=== PATIENT | female | born 1990 | race Caucasian/White ===

== ENCOUNTER → 2020-10-23 09:38 | Outpatient (CLI) | payer BC, SELFPAY ==
--- NOTE | ~2020-10-23 | US_ITS ---
EXAMINATION: US OB >= 14 weeks Fetus EXAM DATE: 10/23/2020 10:24 INDICATION: Anatomy, EFW . 2nd trimester. TECHNIQUE: Pelvic obstetrical transabdominal sonogram was performed by a technologist. There are mu ltiple grayscale and Doppler images available for interpretation. There are no earlier studies of th is gestation for comparison. FINDINGS: There is a single fetus identified in vertex presentation with a heart rate of 147 beats pe r minute. The placenta is located in the anterior position. Placental margin to internal cervical os distance is 6.5 cm. There is no sonographic evidence of retroplacental hemorrhage identified. There is subjectively expected amount of amniotic fluid. BIOMETRIC DATA: Biparietal diameter (BPD): 4.5cm ----------------> 19 weeks 6 days. Head circumference (HC): 20.0 cm ----------------> 19 weeks 4 days. Abdominal circumference (AC): 15.2 cm ----------> 20 weeks 3 days. Femur length (FL): 3.0 cm --------------------------> 19 weeks 1 day. These measurements are concordant. HC/AC ratio is 1.11 (The 5th -- 95th percentile range is 1.08-1.26. Estimated weight is 314 g +/- 47 g. This is the 68 percentile when the currently reported clin [facility] gestation age 19 weeks 3 days, clinical estimated date of delivery ([facility]) 03/16/2021 is used. estimated gestational age based on measurements from this exam is 19 weeks 5 days, with an sarah mated date of delivery ([facility]) 03/14. ANATOMIC SURVEY: The following anatomy is identified and is sonographically normal in appearance: Cerebral ventricles Cerebellum Cisterna magna Nuchal fold CTL-spine Four-chamber heart Diaphragm Stomach Kidneys Bladder Three-vessel cord Cord insertion IMPRESSION: 1. Single fetus in vertex presentation with heart rate 147 beats per minute. 2. Estimated weight of 314 grams, 68th percentile using the currently reported clinical gestat ion age of 19 weeks 3 days, [facility]) 03/16/2021. 3. Normal anatomic survey. Reviewed, dictated and finalized at location B. GER GENERAL IMPRESSION: 1. Single fetus in vertex presentation with heart rate 147 beats per minute. 2. Estimated weight of 314 grams, 68th percentile using the currently re ported clinical gestation age of 19 weeks 3 days, [facility]) 03/16/2021. 3. Normal anatomic survey.
== END ==
PROVIDERS: Visit Provider Obstetrics & Gynecology
DX: Z36.9 Encounter for antenatal screening, unspecified (principal); Z3A.19 19 weeks gestation of pregnancy
CPT/HCPCS: 76805

== ENCOUNTER 2021-03-01 19:00 | Outpatient (CLI) | payer BC, SELFPAY ==
[2021-03-01] VITALS (10 sets, daily range): BP systolic 131–149; BP diastolic 92–101; PULSE 68–79; RESP 18; TEMP 36.9; BMI 29.3
--- NOTE | 2021-03-01 19:00 | OBADM ---
This patient, Obdulia Walsh, admitted to the OB room Labor/Delivery/Recovery 106 for observation. Patient/family oriented to hospital policies and general routines including ID bracelet, bed and alarms, visiting hours, pain management, procedures, bathroom and other care routines, personal items, smoking policy, room service/diet, and visiting hours. Patient/Family are encouraged to report perceived risks to care and to ask questions if they do not understand what they are told or what they should do.
[2021-03-01 20:05] LABS: Basophils Percent Auto 0.4 % (0.2-1.2); Eosinophils Absolute Auto 0.1 K/mm3 (0-0.3); Eosinophils Percent Auto 0.6 % (0-4.4); Hematocrit 36.9 % (37.0-47.0); Hemoglobin 12.3 g/dL (12.0-15.0); Immature Granulocyte Absolute 0.09 K/mm3 (0.00-0.031); Immature Granulocyte Percent A 0.8 % (0-0.5); Lymphocytes Absolute Auto 1.87 K/mm3 (0.9-3.2); Lymphocytes Percent Auto 16.5 % (18.3-44.2); Mean Corpuscular HGB Conc 33.3 g/dl (32-36); Mean Corpuscular Hemoglobin 30.6 pg (26-34); Mean Corpuscular Volume 91.8 fl (80-100); Mean Platelet Volume 11.5 fl (7.4-10.4); Monocytes Absolute Auto 0.7 K/mm3 (0.1-0.6); Monocytes Percent Auto 6.2 % (2.6-8.5); Neutrophils Absolute Auto 8.5 K/mm3 (1.3-6.7); Neutrophils Percent Auto 75.5 % (45.5-73.1); Platelet Count Result 153 k/mm3 (150-375); Red Blood Count 4.02 M/mm3 (4.2-5.4); Red Cell Distribution Width 13.1 % (11.5-14.5); White Blood Count 11.3 K/mm3 (4.5-10.0)
[2021-03-01 20:10] LABS: Add Urine Microscopic? YES; Appearance Urine Cloudy (Clear); Bacteria Urine Trace /hpf; Bilirubin Urine Negative (Negative); Blood Urine Negative (Negative); Color Urine Yellow (Yellow); Glucose Urine UA Negative (Negative); Ketones Urine Negative (Negative); Leukocyte Esterase Ur 3+ LEU/UL (NEGATIVE); Mucus Urine Rare /lpf; Nitrate Urine Negative (Negative); Protein Urine 1+ mg/dL (Negative); RBC Urine 0-2 /hpf (0-2); Specific Grav Ur 1.017 (1.001-1.035); Squamous Epithelial Cell Urine Many /hpf (Few); Urobilinogen Urine Negative mg/dL (<2.0)
[2021-03-01 20:15] LABS: Alanine Aminotransferase 12 U/L (4-35); Albumin Level 3.6 g/dL (3.5-5.1); Alkaline Phosphatase 160 U/L (38-126); Anion Gap 7 mmol/L (8-16); Aspartate Amino Transferase 24 U/L (14-36); Bilirubin,Total 0.3 mg/dL (0.2-1.3); Blood Urea Nitrogen 6 mg/dL (7-17); Calcium 8.9 mg/dL (8.4-10.2); Carbon Dioxide 21 mmol/L (22-30); Chloride 106 mmol/L (98-107); Estimated CRCL calculation 128 ml/min; Estimated Glomerular Filt Rate > 60; Glucose 90 mg/dL (65-105); Potassium 3.8 mmol/L (3.4-5.0); Sodium 134 mmol/L (137-145); Uric Acid 4.3 mg/dL (2.5-7.5)
[2021-03-01 20:24] LABS: Creatinine Urine 124.5 mg/dL; Total Protein Urine Random 12 mg/dL
[2021-03-01] MEDS: ACETAMINOPHEN 500 MG TABLET 1000 MG PO (20:46)
== END 2021-03-01 21:20 | disposition home or self-care (01) ==
LOC: ANHLDR 21:13 → ANHOBOP 03-04 12:48 → ANHLDR 03-04 12:48
PROVIDERS: Student in an Organized Health Care Education/Training Program; PCP Internal Medicine; Visit Provider Obstetrics & Gynecology
DX: O13.9 Gestational [pregnancy-induced] hypertension without significant proteinuria, unspecified trimester (principal); Z3A.00 Weeks of gestation of pregnancy not specified
CPT/HCPCS: 36415; 80053; 81001; 82570; 84112; 84156; 84550; 85025; 87086; 87088; 99199; A9270

== ENCOUNTER 2021-03-05 04:48 | Inpatient (IN) | payer BC, SELFPAY ==
[2021-03-05] VITALS (115 sets, daily range): BP systolic 99–145; BP diastolic 41–99; PULSE 52–171; RESP 16; TEMP 36.1–36.9; O2SAT 97–100; BMI 29.8
--- NOTE | 2021-03-05 05:47 | WPDANESEPP ---
Anes - Eval Pre Procedure Procedure: labor epidural Date/Time: 03/05/21 05:47 Surgeon: arabella Pre Op Diagnosis: SROM Patient Data Age: 30 Gender: F Height: Weight: Last Vital Signs Pulse 69 03/05/21 05:46 BP 139/93 H 03/05/21 05:46 Allergies Allergy/AdvReac Type Severity Reaction Status Date / Time Cephalosporins Allergy Unknown Verified 02/17/21 13:37 Penicillins Allergy Hives Verified 02/17/21 13:35 PRESEVERATIVES IN SHOTS AdvReac Swelling Uncoded 02/17/21 13:37 Home Medications Medication Instructions Recorded Confirmed Type prenat.vits,susan,hnv-vmhz-barzd 1 tablet PO HS 02/17/21 03/01/21 History Patient hx anesthesia problems: none Family hx anesthesia problems: none PMFSH Family History Family History (Updated 02/17/21 @ 13:39 by Evan Strong RN) Father Hypertension Mother Hypertension Sibling Hypertension Social History Social History Substance use: never Spiritual care concerns: No Exam Day of Procedure 03/05/21 05:47
--- NOTE | 2021-03-05 06:16 | LDADM ---
This patient, Obdulia Walsh, was admitted to Labor/Delivery/Recovery 106 on 03/05/21 at 04:48. Plans for labor, pain management and were discussed with patient. Patient/family oriented to hospital policies and general routines including ID bracelet, bed and alarms, visiting hours, pain management, procedures, bathroom and other care routines, personal items, smoking policy, room service/diet and guest tray routines, security routines, and visiting hours. Patient/Family are encouraged to report perceived risks to care and to ask questions if they do not understand what they are told or what they should do. See OBIX for further documentation.
[2021-03-05] MEDS: LACTATED RINGERS 1,000 ML 125 ML IV CONT ×3 (06:23→11:09)
[2021-03-05] MEDS: CLINDAMYCIN 900 MG/D5W 50 ML 900 MG/50 ML PIGGYBACK 50 MG IVPB ×2 (06:24→13:35)
[2021-03-05 06:30] LABS: Basophils Percent Auto 0.4 % (0.2-1.2); Eosinophils Absolute Auto 0.1 K/mm3 (0-0.3); Eosinophils Percent Auto 0.8 % (0-4.4); Hemoglobin 12.3 g/dL (12.0-15.0); Immature Granulocyte Absolute 0.08 K/mm3 (0.00-0.031); Immature Granulocyte Percent A 0.7 % (0-0.5); Lymphocytes Absolute Auto 2.07 K/mm3 (0.9-3.2); Lymphocytes Percent Auto 18.6 % (18.3-44.2); Mean Corpuscular HGB Conc 33.2 g/dl (32-36); Mean Corpuscular Hemoglobin 30.5 pg (26-34); Mean Corpuscular Volume 91.8 fl (80-100); Mean Platelet Volume 11.9 fl (7.4-10.4); Monocytes Absolute Auto 0.8 K/mm3 (0.1-0.6); Monocytes Percent Auto 7.2 % (2.6-8.5); Neutrophils Absolute Auto 8.1 K/mm3 (1.3-6.7); Neutrophils Percent Auto 72.3 % (45.5-73.1); Platelet Count Result 148 k/mm3 (150-375); Red Blood Count 4.03 M/mm3 (4.2-5.4); Red Cell Distribution Width 13.2 % (11.5-14.5); White Blood Count 11.1 K/mm3 (4.5-10.0)
--- NOTE | 2021-03-05 08:09 | WPDOBADMIT ---
Obstetrics - Admit Note Admission Note: record reviewed. Additions to the history and/or subsequent changes in the physical findings follow. 30 y/o at 38 3/7 weeks here after gush of clear fluid around 0400, now feeling some contractions. GBS pos, allergic to PCN. Culture sensitive to clindamycin. History of gestational HTN, has used aspirin through 34 weeks. AVSS NST reactive TOCO: contractions irregularly ABD soft, nontender, gravid, vertex EXT nontender Cervix 2-3/50/-2. Gross ROM, clear fluid. A: IUP at term with SROM. GBS pos. P: Augment labor as needed. Clindamycin.
[2021-03-05] MEDS: OXYTOCIN 30 UNITS/NS 500 ML 30 UNITS/500 ML BAG IV CONT ×2 (08:25→14:50)
[2021-03-05 11:10] LABS: Rapid Plasma Reagin Non-Reactive (NonReactive)
--- NOTE | 2021-03-05 14:30 | PM.OBPRVD ---
OB - Delivery Note Procedure Delivery date: 03/05/21 Procedure: Intrapartal events: None Induction method: none Delivery augmentation: pitocin Delivery monitor: external FHT and external uterine Route of delivery: Laceration Description: Periurethral and Perineal - 1st Degree Delivery repair: vicryl (3-0) Specimen: Yes (cord blpod) Quantitative Blood Loss (ml): 65 Anesthesia type: Epidural Disposition: PACU Complications: None Narrative: 30 y/o at 38 3/7 weeks gestation who presented to the hospital after a gush of clear fluid. SROM was diagnosed. She received clindamycin for GBS colonization (sensitive to clindamycin). Labor was subsequently augmented using IV oxytocin. She received an epidural for pain control. Her labor progressed and her cervix dilated completely. She pushed with good effort and delivered the infant's head to the perineum. A loose nuchal cord was splinted and the body delivered. The nose and mouth were bulb suctioned. The cord was reduced. After a delay, the cord was clamped and cut. The was handed off the field. Cord blood was collected. The placenta delivered spontaneously and was grossly normal in appearance. The usual 3 vessel cord was noted. A first degree midline perineal laceration was sustained, as was a right sided periurethral laceration. These were reapproximated using 3 0 Vicryl in interrupted [id number] fashion. Excellent hemostasis resulted as did excellent reapproximation of the normal anatomy. Needle and instrument counts were correct. The patient was taken to recovery room in stable condition. The infant went to the nursery in stable condition. I was present and scrubbed for the entire delivery. Baby Date of : 03/05/21 Time of : 14:16 Weeks of gestation at delivery: 38 Infant gender: Female Weight (pounds): 6 Weight (ounces): 14 presentation: vertex position: Right Occiput Anterior Placenta delivery description: Spontaneous and Normal Configuration cord vessel description: 3 Vessels, Nuchal Cord and Delayed Cord Clamping score one minute: 9 score five minutes: 9
--- NOTE | 2021-03-05 14:34 | P.DS_ITS ---
DS: Admitting Diagnosis Admitting Diagnosis Admitting Diagnosis: IUP at 38 3/7 weeks SROM GBS colonization DS: Discharge Diagnosis Discharge Diagnosis (1) (normal spontaneous vaginal delivery): Code(s): O80 - Encounter for full-term uncomplicated delivery Status: Acute (2) GBS (group B Streptococcus carrier), +RV culture, currently : Code(s): O99.820 - Streptococcus B carrier state complicating Status: Acute OB - DS: Summary OB Procedures : None OB Procedures Intrapartum: Spontaneous Vag Delivery OB Procedures: : None DS: Data Data Completed and Pending Labs on day of discharge: Labs from last 24 hours 03/05/21 03/05/21 03/05/21 06:19 06:19 06:19 WBC 11.1 H RBC 4.03 L Hgb 12.3 Hct 37.0 MCV 91.8 MCH 30.5 MCHC 33.2 RDW 13.2 Plt Count 148 L MPV 11.9 H Immature Gran % (Auto) 0.7 H Neut % (Auto) 72.3 Lymph % (Auto) 18.6 [place] % (Auto) 7.2 Eos % (Auto) 0.8 Baso % (Auto) 0.4 Lymph # (Auto) 2.07 [place] # (Auto) 0.8 H Eos # (Auto) 0.1 Baso # (Auto) 0.0 Abs Immat Gran (auto) 0.08 H Absolute Neuts (auto) 8.1 H Absolute Nucleated RBC 0.0 Nucleated RBC % 0.0 RPR Non-reactive Blood Type A Positive Antibody Screen Negative Discharge Plan Discharge Attending physician on discharge: Zach Phoenix Discharging Clinician: Zach Phoenix Patient Disposition: Home, Self-Care Activity: pelvic rest Diet: regular Discharge Instructions: Call or return if temperature above 100.4? F, increased abdominal pain, increased vaginal bleeding or any new problems. Stand Alone Forms: General Discharge Information Follow-up/Referrals: Zach Phoenix MD [Physician] - 6 Weeks Discharge Medications: New ibuprofen 600 mg tablet 600 mg PO Q6H PRN (Reason: cramps) Qty: 30 RF: 0 No Action prenat.vits,susan,zdy-rsrm-unuyu Tablet 1 tablet PO HS RF: 0 Date of admission: 03/05/21 04:48 Primary Care Provider: ,Israel Parsons Admitting Provider: Zach Phoenix Attending physician on admission: Zach Phoenix Condition: Stable
[2021-03-05] MEDS: IBUPROFEN 600 MG TABLET PO (18:52)
[2021-03-06] MEDS: IBUPROFEN 600 MG TABLET PO ×4 (00:40→21:28)
[2021-03-06] MEDS: ACETAMINOPHEN 325 MG TABLET 650 MG PO ×4 (00:40→21:28)
[2021-03-06 00:49] VITALS: BP 123/79; PULSE 73; RESP 16; TEMP 36.9; O2SAT 98
[2021-03-06 04:56] VITALS: BP 112/66; PULSE 66; RESP 16; TEMP 36.6; O2SAT 98
[2021-03-06 05:56] LABS: Hematocrit 31.7 % (37.0-47.0)
[2021-03-06 08:20] VITALS: BP 131/84; PULSE 74; RESP 16; TEMP 37; O2SAT 97
--- NOTE | 2021-03-06 09:06 | PM.OBPNVD ---
OB - PN: Subj Subjective Date/time seen: 03/06/21 09:06 Narrative: Pain OK. OB - PN: Obj Data Labs CBC & Chem 7: 03/06/21 04:39 Labs: Laboratory Results - last 24 hr 03/05/21 03/06/21 06:19 04:39 Hgb 11.0 L Hct 31.7 L RPR Non-reactive OB - PN A/P Plan Comments: A: PPD#1, doing well. P: Routine care. Exam Psych: Other: AVSS ABD soft, nontender, fundus firm EXT nontender
--- NOTE | 2021-03-06 09:28 | WPDANLDPN2 ---
Anes-Prog Note L&D Date/Time: 03/06/21 09:28 Comfortable throughout: labor and delivery Neuraxial method: epidural Epidural/Spinal procedure site: clean & non-tender Neuro status: Neuro function grossly intact. Cardiovascular status: normal Respiratory status: normal Airway patency: baseline Mental status: baseline Post-Op hydration status: normal Vital Signs: Last Vital Signs Temp 36.6 C 03/06/21 04:56 Pulse 66 03/06/21 04:56 Resp 16 03/06/21 04:56 BP 112/66 03/06/21 04:56 Pulse Ox 98 03/06/21 04:56 Pain score (VAS): 0 Post-procedural complaints: none Patient feedback: Patient satisfied with anesthetic care.
[2021-03-06 12:10] VITALS: BP 130/88; PULSE 69; RESP 16; TEMP 36.8; O2SAT 98
--- NOTE | 2021-03-06 12:30 | PC.NURSE ---
Consult with pt., mother reports this to be 2nd child to breastfeed,first pumped and bottle fed for 2 months before infant would latch. Mother reports is sleepy at breast with slight tenderness. Both nipples are reddened skin is intact. Infant is able to move tongue freely past gum ridge, both lips flange. Mother has to breast in cradle with shallow latch, reporting tenderness with feeding. Reviewed infant feeding cues, frequencies, duration of feedings, feeding elimination flow sheet, and signs of adequate intake. Demonstrated stimulation techniques to wake for feeding. Assisted with to breast. Reviewed positioning/alignment in cross cradle, holding breast in ?U? hold and guided asymmetrical latch on. able to latch correctly within a few attempts. Infant nursed eagerly with steady draws and occasional swallowing followed with long pausing. Reviewed signs of a correct latch, effective nursing and suck swallow ratio. would slip to shallow latch, mother reports tenderness. Demonstrated how to adjust latch more deeply while feeding. Suggested mother stimulate while feeding to increase stimulate, increase intake and to assist with maintaining deep latch. Mother reports she can feel change in latch and has no tenderness. Suggested mother stimulate while feeding to increase stimulate, increase intake and to assist with maintaining deep latch. Mother switched back to cradle, infant slipped to shallow latch, mother denies tenderness. Nipple care reviewed of lanolin after feedings, warm compresses as needed. Instructed mother to call out for RN assistance if she is unable to latch infant for feeding or she has discomfort with nursing. Instructed feeding should be initiated three hours from start of last feeding or if feeding cues are noted before. Mother voiced understanding of information shared
[2021-03-06 20:00] VITALS: BP 124/84; PULSE 65; RESP 16; TEMP 36.8; O2SAT 97
[2021-03-07] MEDS: IBUPROFEN 600 MG TABLET PO (03:35)
[2021-03-07] MEDS: ACETAMINOPHEN 325 MG TABLET 650 MG PO (03:35)
--- NOTE | 2021-03-07 08:40 | PC.NURSE ---
Patient viewed the discharge video Mother & Baby Care, The First Two Weeks . Patient was given the opportunity and encouraged to ask questions. Patient verbalized understanding of information shared and has been given the mother/baby guide for home reference.
[2021-03-07] MEDS: MULTIVIT/MIN/PREN/FOL AC/IRON TABLET 1 TAB PO (08:41)
[2021-03-07] MEDS: FLUoxetine HCL 10 MG CAPSULE PO (08:41)
[2021-03-07 08:45] VITALS: BP 143/89; PULSE 78; RESP 16; TEMP 36.7; O2SAT 98
--- NOTE | 2021-03-07 08:55 | PM.OBPNVD ---
OB - PN: Subj Subjective Date/time seen: 03/07/21 08:55 Narrative: Pain OK. Would like to go home. OB - PN: Obj Data Labs CBC & Chem 7: 03/06/21 04:39 OB - PN A/P Plan Comments: A: PPD#2, doing well. P: Home to f/u 6 weeks. Exam Psych: Other: AVSS ABD soft, nontender, fundus firm EXT nontender
[2021-03-10 11:23] VITALS: BP 137/93; PULSE 70; RESP 20; TEMP 37; O2SAT 100
== END 2021-03-07 11:07 | disposition home or self-care (01) | DRG 807 ==
LOC: ANHLDR 14:35 → ANHOB2 17:37
PROVIDERS: Admitting Provider Obstetrics & Gynecology; PCP Internal Medicine; Visit Provider Obstetrics & Gynecology
DX: O99.824 Streptococcus B carrier state complicating childbirth (principal); Z37.0 Single live birth; Z3A.38 38 weeks gestation of pregnancy; O36.8330 Maternal care for abnormalities of the fetal heart rate or rhythm, third trimester, not applicable or unspecified; O70.0 First degree perineal laceration during delivery; O71.82 Other specified trauma to perineum and vulva
CPT/HCPCS: 36415; 85014; 85018; 85025; 86592; 86850; 86900; 86901; A9270; J2590; J2795; J7120

== ENCOUNTER 2023-04-07 09:00 | Outpatient (NON) | payer OTHER, SELFPAY | END 2023-04-07 09:01 | disposition home or self-care (01) | PROVIDERS: PCP Internal Medicine; Visit Provider Obstetrics & Gynecology | DX: N92.1 Excessive and frequent menstruation with irregular cycle (principal) | CPT/HCPCS: 88305 ==

== ENCOUNTER 2023-04-07 10:15 | Day surgery (SDC) | payer OTHER, SELFPAY ==
--- NOTE | 2023-04-06 10:57 | P.PNAN_ITS ---
Anes - Initial Pre Proc Eval Procedure: Operation Date: 04/07/23 14:15 Proposed Procedures p Hysteroscopy with Dilation and Curettage - Zach Phoenix MD Date/Time: 04/06/23 10:57 Surgeon: Zach Phoenix MD Pre Op Diagnosis: Irregular Vaginal Bleeding and Abnormal Ultrasound Patient Data Age: 32 Gender: F Height: 1.7 m Weight: 73.5 kg Allergies Allergy/AdvReac Type Severity Reaction Status Date / Time Cephalosporins Allergy Unknown Verified 04/07/23 10:41 Penicillins Allergy Hives Verified 04/07/23 10:41 PRESEVERATIVES IN SHOTS AdvReac Swelling Uncoded 04/07/23 10:41 Home Medications Medication Instructions Recorded Confirmed Type prenat.vits,susan,jpa-mzlj-xorcf 1 tablet PO HS 02/17/21 04/07/23 History ibuprofen 600 mg tablet 600 mg PO Q6H PRN cramps #30 tabs 03/05/21 04/07/23 Rx Patient hx anesthesia problems: none Family hx anesthesia problems: none Results Review: All pre-operative results and documents have been reviewed as part of the pre-operative evaluation. [facility] Past Medical History Medical History Anxiety Asthma Family History Family History Father Hypertension Mother Hypertension Sibling Hypertension Social History Social History Smoking status: Never smoker Alcohol intake: current Alcohol use details: 3 per month, rarely Substance use: never Substance use type: does not use Living arrangements: with family Spiritual care concerns: No Anes - Eval Final PreProcedure Day of Procedure 04/06/23 10:57 Patient weight: overweight Heart: regular rate and rhythm Lungs: clear to auscultation and normal air movement Airway: Mallampati scale class II Neurological: alert and oriented Last oral intake: >/= 8 hours ASA classification: II Emergent: no Anesthetic plan: proceed Anesthesia type and monitoring: general GIVS and standard monitoring Results Review: All pre-operative results and documents have been reviewed as part of the pre- operative evaluation. Informed Consent: The patient's anesthetic plan and its attendant risks and benefits were discussed with the patient/family/POA. Questions were solicited and answers provided to the satisfaction of the patient/family/POA.
--- NOTE | 2023-04-07 01:44 | PM.IMHP ---
H&P: HPI History of Present Illness Date/Time: 04/07/23 01:44 Chief Complaint: Heavy vaginal bleeding Narrative: 32 y/o with heavy monthly menses lasting 9 days each. Ultrasound exam shows an endometrial complex measuring 1.45 cm thick. Review of Systems Review of Systems: All systems reviewed & are unremarkable except as noted in HPI and below PMFSH Past Medical History Medical History Anxiety Asthma Family History Family History Father Hypertension Mother Hypertension Sibling Hypertension Social History Social History Smoking status: Never smoker Alcohol intake: current Alcohol use details: 3 per month, rarely Substance use: never Substance use type: does not use Living arrangements: with family Spiritual care concerns: No Meds Home Medications and Allergies Home Medications Medication Instructions Recorded Confirmed Type prenat.vits,susan,npj-ykip-dcdtg 1 tablet PO HS 02/17/21 03/29/23 History ibuprofen 600 mg tablet 600 mg PO Q6H PRN cramps #30 tabs 03/05/21 03/29/23 Rx Allergies Allergy/AdvReac Type Severity Reaction Status Date / Time Cephalosporins Allergy Unknown Verified 03/29/23 14:01 Penicillins Allergy Hives Verified 03/29/23 14:01 PRESEVERATIVES IN SHOTS AdvReac Swelling Uncoded 03/29/23 14:01 Exam Const: Orientation/consciousness: patient oriented x3 Other: Well-developed, well-nourished female in no acute distress. Neck: Thyroid: thyroid normal Lymphatic: no lymphadenopathy noted (in neck, axilla or inguinal nodes) Resp: Effort & Inspection: normal respiratory effort Auscultation: clear to auscultation bilaterally Cardio: Rate: regular rate Rhythm: regular rhythm Heart sounds: S1 normal heart sound present and S2 normal heart sound present GI: Other: ABD: Soft, nontender, nondistended. No guarding or rebound tenderness. No hepatosplenomegaly. : General: Yes no CVA tenderness Other: External genitalia: normal female hair distribution, without lesion. Urethral meatus: no lesion, non prolapsed. Bladder: no mass, nontender Vagina: well-estrogenized, without lesion or discharge. No cystocele or rectocele. Cervix: no lesion or discharge. Uterus: small, anteverted, freely mobile, nontender Adnexa: no mass or tenderness. Anus/perineum: no lesions, nontender Back/Spine/Pelvis: Back: no CVA tenderness Skin: General skin exam: normal color and no rashes or lesions noted Neuro: General: patient oriented x3 Extrem: Other: Extremities: nontender with no edema Psych: Mental Status: mental status grossly normal Affect: normal affect Assessment and Plan Assessment and plan (1) Menometrorrhagia: Code(s): N92.1 - Excessive and frequent menstruation with irregular cycle Status: Acute Assessment and Plan: A: Menometrorrhagia with thickened endometrial complex. P: We have reviewed medical as well as surgical approaches to her problem. She prefers the latter. Specifically, I have offered her a hysteroscopy with dilation and sharp curettage. She understands risks of surgery to include risks of anesthesia, risks of pain, infection, bleeding, blood products, thromboembolic phenomena and damage to adjacent structures such as bowel, bladder, ureters, blood vessels and nerves. She understands all these risks and elects to proceed with surgery. (2) Abnormal pelvic ultrasound: Code(s): R93.89 - Abnormal findings on diagnostic imaging of other specified body structures Status: Acute
[2023-04-07 10:47] VITALS: BMI 25.4
[2023-04-07] MEDS: ACETAMINOPHEN 500 MG TABLET 1000 MG PO (10:56)
[2023-04-07] MEDS: LACTATED RINGERS 1,000 ML 30 ML IV CONT (11:05)
--- NOTE | 2023-04-07 12:04 | WPDHPUPDATE1 ---
History and Physical Update Update Date/Time: 04/07/23 12:04 History and Physical has been reviewed, including an updated exam of the patient. There are NO changes in the patient's condition. Risks, benefits, and alternatives have been discussed and questions answered. Patient agrees to proceed with procedure.
[2023-04-07] MEDS: LIDOCAINE HCL 1% LOCAL INJ 20 ML VIAL 10 ML INFILTRATE (12:57)
--- NOTE | 2023-04-07 13:08 | W.PM.PROC2 ---
Procedure Note - Detailed Date of Procedure 04/07/23 Pre-op Diagnosis Menometrorrhagia Abnormal pelvic ultrasound Post-op Diagnosis Same Procedure Performed Hysteroscopy Dilation and sharp curettage Surgeon Zach Phoenix MD Anesthesia MAC and Local (Paracervical block) Findings Mild endometrial thickening. Both tubal ostia seen. Description of Procedure The patient was taken to the operating room where she was prepared and draped in the usual sterile fashion in the dorsal lithotomy position. The bladder was drained with a red rubber catheter. A sterile speculum was placed into the vagina. The anterior lip of the cervix was grasped with single-tooth tenaculum. Ten mL of 1% lidocaine was administered in a paracervical block. The cervix was then gently dilated using Hegar dilators until an 8 mm dilator could be passed. Hysteroscopy was performed using sterile saline as a distention medium. Findings are as noted above. Sharp curettage was then performed, and endometrial curettings were collected on a Telfa pad and passed off to be sent to pathology. Hemostasis was excellent. Sponge, lap, needle and instrument counts were correct. The patient was awakened and taken to the recovery room in stable condition. I was present and scrubbed through the entire procedure. Estimated Blood Loss 10 Drains No Packing No Pathology Yes (Endometrial curettings) Complications None Condition Stable Disposition PACU
[2023-04-07 13:11] VITALS: BP 123/81; PULSE 68; RESP 16; O2SAT 100
--- NOTE | 2023-04-07 13:25 | WPDANESPN ---
Anes - Prog Note Post-Op Date/Time: 04/07/23 13:25 Cardiovascular status: normal Respiratory status: normal Airway patency: baseline Mental status: baseline Post-Op hydration status: normal Vital Signs: Last Vital Signs Pulse 68 04/07/23 13:11 Resp 16 04/07/23 13:11 BP 123/81 04/07/23 13:11 Pulse Ox 100 04/07/23 13:11 O2 Del Method Room Air 04/07/23 13:11 Pain Score (VAS): 1 I/O: Intake & Output 04/06/23 04/07/23 04/07/23 23:59 07:59 15:59 Intake Total 0 Output Total 50 Balance -50 Post-procedural complaints: none Patient Feedback: Patient satisfied with anesthetic care. Other Findings: Patient vital signs back to baseline. Patient denies nausea and vomiting. Patient's pain under control. Patient OK for discharge.
[2023-04-07 13:27] VITALS: BP 115/90; PULSE 60; RESP 16; O2SAT 100
[2023-04-07 13:46] VITALS: BP 111/80; PULSE 58; RESP 16; O2SAT 100
== END 2023-04-07 13:51 | disposition home or self-care (01) ==
PROVIDERS: PCP Internal Medicine; Visit Provider Obstetrics & Gynecology
PROC: 0U5B8ZZ Destruction of Endometrium, Via Natural or Artificial Opening Endoscopic (ICD-10-PCS; CPT 58563; principal; 2023-04-07 14:15)
DX: N92.1 Excessive and frequent menstruation with irregular cycle (principal)
CPT/HCPCS: 58558

== ENCOUNTER 2023-10-29 18:13 | Emergency (ER) | payer OTHER, SELFPAY ==
[2023-10-29 18:29] VITALS: BP 121/77; PULSE 80; RESP 16; TEMP 36.6; O2SAT 99
[2023-10-29 18:31] VITALS: BP 121/77; PULSE 80; RESP 16; TEMP 36.6; O2SAT 99
--- NOTE | 2023-10-29 18:41 | ED.EYEPROB ---
HPI - Eye Problem General Chief complaint: Eye Problems Stated complaint: left eye red Time Seen by Provider: 10/29/23 18:41 Source: patient Mode of arrival: ambulatory Limitations: no limitations History of Present Illness HPI Narrative: 33-year-old female presents with complaint of left eye redness, itching, yellow drainage starting today. denies vision change. Does not wear contacts. 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 All systems reviewed and negative except as noted above. Related Data Home Medications Medication Instructions Recorded Confirmed prenat.vits,susan,[id number] 1 tablet PO HS 02/17/21 10/29/23 Allergies Allergy/AdvReac Type Severity Reaction Status Date / Time Cephalosporins Allergy Unknown Verified 10/29/23 18:31 Penicillins Allergy Hives Verified 10/29/23 18:31 PRESEVERATIVES IN SHOTS AdvReac Swelling Uncoded 10/29/23 18:31 Review of Systems Review of Systems: CONSTITUTIONAL: Denies fever, chills, or sweats. EYES: Denies visual changes . Reports left eye redness and yellow discharge. ENT: Denies rhinorrhea, congestion, sore throat, or otalgia. CARDIOVASCULAR: Denies chest pain, palpitations, or edema. RESPIRATORY: Denies cough or dyspnea. GASTROINTESTINAL: Denies abdominal pain, nausea, vomiting, or diarrhea. GENITOURINARY: Denies dysuria or hematuria. SKIN: Denies rash or itching. MUSCULOSKELETAL: Denies back pain, joint pain, or myalgia. NEUROLOGIC: Denies headache, numbness, or weakness. PSYCHIATRIC: Denies anxiety or depression. All other systems reviewed are negative, except as documented in HPI. [facility] Past Medical History Medical History Anxiety Asthma Family History Family History Father Hypertension Mother Hypertension Sibling Hypertension Social History Social History Smoking status: Never smoker Alcohol intake: current Alcohol use details: 3 per month, rarely Substance use: never Substance use type: does not use Living arrangements: with family Spiritual care concerns: No Comments At time of signature, agree with nursing past medical, surgical, social and family history. There is no relevant family history pertinent to the presenting complaint. Exam Narrative: GENERAL: This is a well-nourished, well-developed patient, in no apparent distress. HEAD: normocephalic, atraumatic. EYES: PERRL. Sclera and conjunctivae erythematous with yellow drainge L eye. Vision is grossly intact. EARS: External ears normal NOSE: External nose normal NECK: Neck supple, non-tender without lymphadenopathy, masses or thyromegaly. CARDIOVASCULAR: Regular rate and rhythm without murmurs, gallops, or rubs. RESPIRATORY: Clear to auscultation. Breath sounds equal bilaterally. No wheezes, rales, or rhonchi. SKIN: warm, Dry, intact with no suspicious lesions or rash, good texture and turgor. NEURO: awake, alert, and oriented to person, place and time. There were no obvious focal neurologic abnormalities. EXTREMITIES: No joint tenderness, effusion, or edema noted. Course Course Level of Care: Express Care Visit Vital Signs Vital signs: Vital Signs Temperature 36.6 C 10/29/23 18:29 Pulse Rate 80 10/29/23 18:29 Respiratory Rate 16 10/29/23 18:29 Blood Pressure 121/77 10/29/23 18:29 Pulse Oximetry 99 10/29/23 18:29 Oxygen Delivery Room Air 10/29/23 18:29 Temperature 36.6 C 10/29/23 18:31 Pulse Rate 80 10/29/23 18:31 Respiratory Rate 16 10/29/23 18:31 Blood Pressure 121/77 10/29/23 18:31 Pulse Oximetry 99 10/29/23 18:31 Oxygen Delivery Room Air 10/29/23 18:31 reviewed MDM - Eye Problem MDM Narrative Medical decision making narrative: Patient is aware of diagnosis, understands and agrees to treatment plan. Jhony
== END 2023-10-29 18:52 | disposition home or self-care (01) ==
PROVIDERS: Emergency Provider Nurse Practitioner Family; PCP Internal Medicine
DX: H10.32 Unspecified acute conjunctivitis, left eye (principal); J45.909 Unspecified asthma, uncomplicated
CPT/HCPCS: 99213; G0463